=== PATIENT | female | born 1970 | race American Indian/Alaskan Native ===

== ENCOUNTER → 2016-12-12 | Outpatient (CLI) | payer BC ==
--- NOTE | 2016-12-12 12:43 | MY ---
EXAMINATION: Bilateral digital mammography utilizing CAD. HISTORY: Screening exam. Comparison is made to previous studies dated 12/13/2015, 11/03/2014. FINDINGS: Bilateral heterogeneously dense breast tissue. There is a single, possibly two view asymmetry within the slightly inner right breast, mid depth.. Otherwise, no suspicious calcifications, masses or architectural distortions. No pathologic appearing lymph nodes, no abnormal skin thickening or nipple inversion. Other CAD highlighted regions appear normal at this time. IMPRESSION: BI-RADS category 0 - Incomplete study. Right breast diagnostic is needed for further evaluation. THE FALSE-NEGATIVE RATE OF MAMMOGRAM IS APPROXIMATELY 10%. MANAGEMENT OF A PALPABLE ABNORMALITY MUST BE BASED UPON CLINICAL GROUNDS. SENSITIVITY FOR DETECTION OF ABNORMALITIES IN DENSE BREASTS IS LOW. NOTE: A letter will be sent to the patient regarding findings. [facility] -- REGGIE Chávez [phone] - FAX [phone]
== END ==
LOC: MW.MAM 09:13
PROVIDERS: ATTEND Obstetrics & Gynecology
DX: Z12.31 Encounter for screening mammogram for malignant neoplasm of breast (principal)
CPT/HCPCS: G0202; G0202-26

== ENCOUNTER → 2016-12-16 | Outpatient (CLI) | payer BC ==
--- NOTE | 2016-12-17 17:22 | US ---
EXAMINATION: Right digital mammography with targeted ultrasound. HISTORY: Abnormal screening. Comparison is made to previous studies dated 12/12/2016, 12/13/2015. FINDINGS: A right LM view was obtained and spot compression images obtained in the MLO and CC proje ctions. The asymmetry noted within the MLO projection likely persists with compression measuring about 1.1 c m and is oval in appearance. The MLO projection demonstrates an oval, persistent, round, well circum scribed 1.3 cm mass. In the MLO projection, this appears similar to the mammogram dated 12/13/2015. Ultrasound evaluation of the right breast within the region of concern demonstrates a collection of cysts versus a complex cyst at the approximate 3 o'clock position immediately adjacent to the areola . This demonstrates posterior acoustic enhancement and no internal color Doppler flow. IMPRESSION: BI-RADS category III - probably benign. Followup in 6 months with a right breast diagnos tic study is recommended. THE FALSE-NEGATIVE RATE OF MAMMOGRAM IS APPROXIMATELY 10%. MANAGEMENT OF A PALPABLE ABNORMALITY MUST BE BASED UPON CLINICAL GROUNDS. SENSITIVITY FOR DETECTION OF ABNORMALITIES IN DENSE BREASTS IS LOW. NOTE: A letter will be sent to the patient regarding findings. [facility] -- MelvinREGGIE [phone] - FAX [phone]
== END ==
LOC: MW.MAM 15:00
PROVIDERS: ATTEND Obstetrics & Gynecology
DX: R92.8 Other abnormal and inconclusive findings on diagnostic imaging of breast (principal)
CPT/HCPCS: 76642; G0206

== ENCOUNTER 2017-05-06 06:30 | Day surgery (SDC) | payer BC ==
[~2017-05-06 06:30] MED LIST: Clindamycin Phosphate in D5W 600 MG in Premix Bag 50 BAG IV SCH; Lactated Ringers 1,000 ML IV SCH
[2017-05-06] MEDS ORDERED: Midazolam 1 MG/ML 2 ML SDV ONE (07:10)
[2017-05-06] MEDS ORDERED: Propofol 200 MG/20 ML SDV ONE (07:10)
[2017-05-06] MEDS ORDERED: Lidocaine 2% 5 ML SDV ONE (07:10)
[2017-05-06] MEDS ORDERED: fentaNYL 250 MCG/5 ML SDV ONE (07:10)
[2017-05-06] MEDS ORDERED: Ondansetron 4 MG/2 ML SDV ONE (07:10)
[2017-05-06] MEDS ORDERED: Lidocaine 1% 20 ML MDV ONE (07:32)
--- NOTE | 2017-05-06 07:37 | PCM.PREANE ---
Preanesthetic Assessment - Anesthesia/Transfusion/Family Hx Anesthesia History: Prior Anesthesia Reaction Other Type of Anesthesia Reaction Comment: pt states she has problems with nausea post anesthesia Transfusion History: No Prior Transfusion(s) - Review of Systems General: No Symptoms Pulmonary: No Symptoms Cardiovascular: Other (Murmur) Gastrointestinal: No Symptoms Neurological: No Symptoms Other: Reports: None - Physical Assessment NPO Status Date: 05/05/17 NPO Status Time: 23:30 O2 Sat by Pulse Oximetry: 98 Respiratory Rate: 16 Vital Signs: Last Vital Signs Temp 99.7 F 05/06/17 06:49 Pulse 56 L 05/06/17 06:49 Resp 16 05/06/17 06:49 BP 108/55 L 05/06/17 06:49 Pulse Ox 98 05/06/17 06:49 Height: 5 ft 4 in Weight: 63.503 kg ASA Class: 3 Mental Status: Alert & Oriented x3 Airway Class: Mallampati = 2 Dentition: Reports: Normal Dentition Thyro-Mental Finger Breadths: 3 Mouth Opening Finger Breadths: 3 ROM/Head Extension: Full Lungs: Clear to Auscultation, Normal Respiratory Effort Cardiovascular: Regular Rate, Regular Rhythm, Murmurs - Allergies Allergies/Adverse Reactions: Allergies Allergy/AdvReac Type Severity Reaction Status Date / Time cefaclor [From Ceclor] Allergy Nausea and Verified 04/30/17 15:06 Vomiting Sulfa (Sulfonamide Allergy Hives Verified 04/30/17 15:06 Antibiotics) latex sensitive Allergy Rash Uncoded 04/30/17 15:06 - Acknowledgements Anesthesia Type Planned: General Anesthesia Pt an Appropriate Candidate for the Planned Anesthesia: Yes Alternatives and Risks of Anesthesia Discussed w Pt/Guardian: Yes Pt/Guardian Understands and Agrees with Anesthesia Plan: Yes PreAnesthesia Questionnaire HEENT History: Reports: Allergic Rhinitis, Other (See Below) Other HEENT History: wears glasses/contacts Cardiovascular History: Reports: Heart Murmur Other Cardiovascular History: states has hx of heart murmur Respiratory History: Reports: None Gastrointestinal History: Reports: Other (See Below) Other Gastrointestinal History: hx of Idiopathic Sclerosing Meseneritis, takes occasional prednisone Genitourinary History: Reports: None ACID BLOWER History: Reports: Musculoskeletal History: Reports: Fracture Neurological History: Reports: Other (See Below) Other Neuro History: hx of motion sickness, 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 Psychiatric History: Reports: None Endocrine/Metabolic History: Reports: Hypothyroidism Other Endocrine/Metabolic History: hypothyroidism Hematologic History: Reports: None Immunologic History: Reports: None Oncologic (Cancer) History: Reports: None Dermatologic History: Reports: None - Infectious Disease History Infectious Disease History: Reports: Chicken Pox - Past Surgical History Head Surgeries/Procedures: Reports: None HEENT Surgical History: Reports: Other (See Below) Other HEENT Surgeries/Procedures: cysts removed from eyelids Cardiovascular Surgical History: Reports: None Respiratory Surgical History: Reports: None GI Surgical History: Reports: Cholecystectomy Female Surgical History: Reports: Hysterectomy, Oophorectomy, Tubal Ligation Other Female Surgeries/Procedures: laparoscopy with left ovary removal Endocrine Surgical History: Reports: None Neurological Surgical History: Reports: C-Spine Other Neurological Surgeries/Procedures: cervical spinal fusion Musculoskeletal Surgical History: Reports: Arthroscopic Knee Other Musculoskeletal Surgeries/Procedures:: left knee arthroscopy Oncologic Surgical History: Reports: None Dermatological Surgical History: Reports: None - SUBSTANCE USE Smoking Status *Q: Former Smoker Tobacco Use Within Last Twelve Months: No Second Hand Smoke Exposure: No Recreational Drug Use History: No - HOME MEDS Home Medications: Home Meds Cholecalciferol (Vitamin D3) [Vitamin D3] 1,000 unit PO DAILY 07/02/15 [History] Levothyroxine [Synthroid] 100 mcg PO DAILY 07/02/15 [History] L.acidoph,Paracasei, B.lactis [Probiotic] 1 each PO DAILY 12/16/15 [History] Cyanocobalamin (Vitamin B12) [Vitamin B12] 1,000 mcg PO DAILY 01/08/16 [History] Cyclobenzaprine HCl 1 tab PO BEDTIME PRN 01/30/16 [History] Prednisone [IJD: predniSONE] 20 mg PO ASDIRECTED PRN 04/30/17 [History] - CURRENT (IN HOUSE) MEDS Current Meds: Current Medications Clindamycin Phosphate 600 mg/ (Premix) 50 mls @ 100 mls/hr IV ONCALL EDD Lactated Ringer's (Ringers, Lactated) 1,000 mls @ 100 mls/hr IV ASDIRECTED EDD Tramadol HCl (Ultram) 50 mg PO Q6H PRN PRN Reason: Pain Discontinued Medications Fentanyl (Sublimaze) Confirm Administered Dose 250 mcg .ROUTE .STK-MED ONE Stop: 05/06/17 07:11 Lidocaine (Xylocaine-Mpf 2%) Confirm Administered Dose 5 ml .ROUTE .STK-MED ONE Stop: 05/06/17 07:11 Midazolam HCl (Versed 1 Mg/Ml) Confirm Administered Dose 2 mg .ROUTE .STK-MED ONE Stop: 05/06/17 07:11 Ondansetron HCl (Zofran) Confirm Administered Dose 4 mg .ROUTE .STK-MED ONE Stop: 05/06/17 07:11 Propofol (Diprivan 20 Ml) Confirm Administered Dose 200 mg .ROUTE .STK-MED ONE Stop: 05/06/17 07:11
[2017-05-06] MEDS ORDERED: traMADol 50 MG Tab PO PRN (08:00)
[2017-05-06] MEDS ORDERED: diphenhydrAMINE 50 MG/ML SDV ONE (08:22)
[2017-05-06] MEDS ORDERED: Dexamethasone 4 MG/ML 5 ML MDV ONE (08:22)
[2017-05-06] MEDS ORDERED: Metoclopramide 10 MG/2 ML SDV ONE (08:28)
[2017-05-06] MEDS ORDERED: fentaNYL 100 MCG/2 ML SDV IVPUSH PRN (08:35)
--- NOTE | 2017-05-06 09:00 | PCM.OPNOTE ---
- General Post-Op/Procedure Note Date of Surgery/Procedure: 05/06/17 Operative Procedure(s): L knee arthroscopy with PMM Post-Op Diagnosis: L knee medial meniscus tear Primary Surgeon: Sonia Mcghee Principal Programmer: Karlene Longoria in mLs: 5 Condition: Good Free Text/Narrative:: #[id number] tt=15 min
--- NOTE | 2017-05-06 09:11 | PCM.POSTAN ---
POST ANESTHESIA ASSESSMENT - MENTAL STATUS Mental Status: Alert, Oriented - RESPIRATORY Respiratory Status: Respiratory Rate WNL, Airway Patent, O2 Saturation Stable - CARDIOVASCULAR CV Status: Pulse Rate WNL, Blood Pressure Stable - GASTROINTESTINAL GI Status: No Symptoms - POST OP HYDRATION Hydration Status: Adequate & Stable
--- NOTE | 2017-05-06 09:56 | OR ---
SURGEON: Sonia Mcghee MD DATE OF PROCEDURE: 05/06/2017 PREOPERATIVE DIAGNOSIS: Left knee pain. POSTOPERATIVE DIAGNOSES: 1. Left knee medial meniscus tear. 2. Degenerative joint disease, left knee. PROCEDURE: Left knee arthroscopy with partial medial meniscectomy. EQUIPMENT OPERATOR: Karlene Longoria PA-C. ANESTHESIA: General. ESTIMATED BLOOD LOSS: 5 mL. TOURNIQUET TIME: 15 minutes. COMPLICATIONS: None. DVT PROPHYLAXIS: Not indicated. IMPLANTS USED: None. BRIEF HISTORY: Jossy is a 46-year-old female, who has had complaint of progressive left knee pain. She did have an MRI, which showed some degenerative findings. Due to her lack of response to conservative treatment, I did recommend surgical intervention. The risks and goals of procedure were discussed with the patient and were documented preoperatively. She agreed to proceed. DESCRIPTION OF PROCEDURE: The patient was properly identified and brought to the operating room. She was transferred from the OR cart and placed on the operating room table in supine position. General anesthesia was administered. After adequate anesthesia was obtained, a well-padded tourniquet was applied to the left lower extremity. The left lower extremity was then prepped in standard fashion using ChloraPrep solution. It was then sterilely draped. A time-out was performed to ensure correct site and procedure. Preoperative antibiotics were given. Surgical site had been marked preoperatively. An Esmarch was used to exsanguinate the left lower extremity and the tourniquet was inflated to 250 mmHg. A lateral portal arthrotomy was established. Blunt trocar and cannula were introduced into the suprapatellar pouch. Camera, inflow, and outflow were assembled. No significant synovitis was noted. The patellofemoral joint was visualized. The patella showed evidence of degenerative changes along with the trochlea. The patella appeared to track centrally. I then extended down the lateral medial gutter. No loose bodies were identified. I then entered the medial compartment. A medial portal arthrotomy was established. A blunt probe was inserted. The meniscus was probed. She was found to have a radial tear of the posterior horn of the meniscus. Using a combination of biters and shaver, this was resected back to a stable remnant. It was again probed and found to be stable. Cartilage surfaces were then inspected. 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 A chondroplasty was performed. Grade 2 to grade 3 chondromalacia was also present diffusely along the medial tibial plateau. I then entered the notch. Both the ACL and PCL were visualized and probed and found to be intact. I finally entered the lateral compartment. The meniscus was probed and found to be stable. The joint surfaces showed grade 1 chondromalacia only. I then re-entered the patellofemoral joint. Grade 3 chondromalacia was noted centrally along the medial facet of the patella. A shaver was used to perform a chondroplasty. The trochlear groove also showed diffuse grade 2 to grade 3 degenerative findings. The instruments were then removed from the knee. The portal sites were closed with 3-0 nylon. Lidocaine 1% was injected along the portal tracts. Xeroform gauze was placed over the wound and a bulky dressing was applied. The tourniquet was then deflated. She was awakened from her anesthetic and transferred back to the operating room cart. She was brought to recovery room in stable condition. All needle and sponge counts were correct. AGATHA / MARIBEL /[id number]
--- NOTE | 2017-05-06 10:42 | PCM48HPAN ---
Post Anesthesia Note - EVALUATION WITHIN 48HRS OF ANESTHETIC Vital Signs in Normal Range: Yes Patient Participated in Evaluation: Yes Respiratory Function Stable: Yes Airway Patent: Yes Cardiovascular Function Stable: Yes Hydration Status Stable: Yes Pain Control Satisfactory: Yes Nausea and Vomiting Control Satisfactory: Yes (Prophylaxis used did curtail the historical nausea problem) Mental Status Recovered: Yes - COMMENTS/OBSERVATIONS Free Text/Narrative:: To home accompanied.
[2017-05-06 15:23] VITALS: BP 130/71
== END 2017-05-06 10:43 | disposition home or self-care (01) ==
LOC: MW.SDS 06:30
PROVIDERS: ATTEND Orthopaedic Surgery
DX: S83.242A Other tear of medial meniscus, current injury, left knee, initial encounter (principal); M65.862 Other synovitis and tenosynovitis, left lower leg; M17.12 Unilateral primary osteoarthritis, left knee; M22.42 Chondromalacia patellae, left knee; I10 Essential (primary) hypertension; E03.9 Hypothyroidism, unspecified; Z87.891 Personal history of nicotine dependence; Z79.899 Other long term (current) drug therapy; Z88.1 Allergy status to other antibiotic agents; Z88.2 Allergy status to sulfonamides; Z91.040 Latex allergy status; Z98.1 Arthrodesis status; Z98.51 Tubal ligation status; Z90.49 Acquired absence of other specified parts of digestive tract; Z90.710 Acquired absence of both cervix and uterus; Z90.721 Acquired absence of ovaries, unilateral; Z98.890 Other specified postprocedural states
CPT/HCPCS: 29881; 93005; J1100; J1200; J2250; J2405; J2765; J3010; J7120; 01400; 88304; J2704

== ENCOUNTER 2017-08-12 06:00 | Emergency (ER) | payer BC ==
[2017-08-12] MEDS ORDERED: Ondansetron 4 MG Tab.DIS PO ONE (06:25)
--- NOTE | 2017-08-12 06:27 | EDM.PDOC ---
ED HPI GENERAL MEDICAL PROBLEM - General Chief Complaint: General Stated Complaint: ALLERGIC REACTION TO MEDICATION Time Seen by Provider: 08/12/17 06:07 - History of Present Illness INITIAL COMMENTS - FREE TEXT/NARRATIVE: HISTORY AND PHYSICAL: History of present illness: The patient is a 46-year-old female who presents with complaints of nausea lightheadedness shakiness and feeling sweaty that woke her from sleep at 2:30 this morning. She says that she was prescribed Celexa by Dr. velasquez recently and took her first dose last evening at 9 PM and she feels that this is a reaction to that medication. She has recently been following with Dr. Velasquez doing a workup for chronic abdominal pain consisting of labs and a CT scan all of which were negative. She states currently that she is not having abdominal pain but she is nauseated she is not vomiting or having diarrhea. She has no chest pain but earlier she felt like she was having palpitations which have improved. She feels lightheaded and woozy but not specifically dizzy and she has not passed out or blackout. She feels flushed and warm. All of these symptoms started at 2: 30 this morning and she said that she truly believes that it's related to the medication which she doesn't want to take anymore. Review of systems: As per history of present illness and below otherwise all systems reviewed and negative. Past medical history: As per history of present illness and as reviewed below otherwise noncontributory. Surgical history: As per history of present illness and as reviewed below otherwise noncontributory. Social history: No reported history of drug or alcohol abuse. Family history: As per history of present illness and as reviewed below otherwise noncontributory. Physical exam: Gen.: Well-developed well-nourished female who seems somewhat anxious in the room and vital signs are stable. HEENT: Atraumatic, normocephalic, pupils reactive, the patient has no nystagmus , negative for conjunctival pallor or scleral icterus, mucous membranes moist, throat clear, neck supple, nontender, trachea midline. Lungs: Clear to auscultation, breath sounds equal bilaterally, chest nontender. Heart: S1S2, regular rate and rhythm no overt murmurs Abdomen: Soft, nondistended, nontender. NABS Pelvis: Deferred Genitourinary: Deferred Rectal: Deferred. Extremities: Atraumatic, negative for cords or calf pain. Neurovascular unremarkable. Neuro: Awake, alert, oriented. Cranial nerves II through XII unremarkable. Cerebellum unremarkable. Motor and sensory unremarkable throughout. Exam nonfocal. Skin: Normal turgor no evidence of any diaphoresis or rashes are seen Diagnostics: EKG orthostatic vitals, CBC CMP troponin Therapeutics: Zofran Ativan by mouth 0628: Case was discussed with Dr. Velasquez as she is the provider who prescribed Celexa and she says that the patient does have issues with anxiety and she has done a workup for this chronic abdominal pain as is present in the computer consisting of labs and a CT scan performed on August 07. She is in agreement with doing basic labs but feels that the Ativan and Zofran will make a big difference. I discussed with the patient this conversation and she is agreeable. Impression: Nausea and lightheadedness, likely Anxiety reaction with history of recent Celexa use Definitive disposition and diagnosis as appropriate pending reevaluation and review of above. no pain Pain Score (Numeric/FACES): 0 - Related Data Allergies Allergy/AdvReac Type Severity Reaction Status Date / Time cefaclor [From Ceclor] Allergy Nausea and Verified 08/12/17 06:12 Vomiting Sulfa (Sulfonamide Allergy Hives Verified 08/12/17 06:12 Antibiotics) sulfamethoxazole Allergy Stomach Verified 08/12/17 06:12 [From Bactrim] Upset trimethoprim [From Bactrim] Allergy Stomach Verified 08/12/17 06:12 Upset latex sensitive Allergy Rash Uncoded 08/12/17 06:12 Home Meds: Home Meds Cholecalciferol (Vitamin D3) [Vitamin D3] 1,000 unit PO DAILY 07/02/15 [History] Levothyroxine [Synthroid] 100 mcg PO DAILY 07/02/15 [History] L.acidoph,Paracasei, B.lactis [Probiotic] 1 each PO DAILY 12/16/15 [History] Escitalopram [Lexapro] 10 mg PO DAILY 08/12/17 [History] Past Medical History HEENT History: Reports: Other (See Below) Other HEENT History: cyst removed from eye lid Cardiovascular History: Reports: Heart Murmur Other Cardiovascular History: states has hx of heart murmur Respiratory History: Reports: None Gastrointestinal History: Reports: Cholelithiasis, GERD Other Gastrointestinal History: hx of Idiopathic Sclerosing Meseneritis, takes occasional prednisone Genitourinary History: Reports: None BACTERIOLOGIST PHARMACEUTICAL History: Reports: Musculoskeletal History: Reports: None Neurological History: Reports: None Other Neuro History: hx of motion sickness, 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 Psychiatric History: Reports: None Endocrine/Metabolic History: Reports: Hypothyroidism Other Endocrine/Metabolic History: hypothyroidism Hematologic History: Reports: None Immunologic History: Reports: None Oncologic (Cancer) History: Reports: None Dermatologic History: Reports: None - Infectious Disease History Infectious Disease History: Reports: Chicken Pox - Past Surgical History Head Surgeries/Procedures: Reports: None HEENT Surgical History: Reports: None Cardiovascular Surgical History: Reports: None Respiratory Surgical History: Reports: None Female Surgical History: Reports: Hysterectomy, Tubal Ligation, Other (See Below) Endocrine Surgical History: Reports: None Neurological Surgical History: Reports: C-Spine, Other (See Below) Other Neurological Surgeries/Procedures: hx neck surgery with plate Musculoskeletal Surgical History: Reports: Other (See Below) Other Musculoskeletal Surgeries/Procedures:: cervical 4-5 fusion Oncologic Surgical History: Reports: None Dermatological Surgical History: Reports: None Social & Family History - Family History Family Medical History: Noncontributory Cardiac: Reports: Hypertension, [place] Endocrine/Metabolic: Reports: Diabetes, type II - Tobacco Use Smoking Status *Q: Never Smoker Second Hand Smoke Exposure: No - Caffeine Use Caffeine Use: Reports: None - Recreational Drug Use Recreational Drug Use: No Drug Use in Last 12 Months: No ED ROS GENERAL - Review of Systems Review Of Systems: ROS reveals no pertinent complaints other than HPI. ED EXAM, GENERAL - Physical Exam Exam: See Below (See dictation) Course - Vital Signs Last Recorded V/S: Last Vital Signs Temp 36.8 C 08/12/17 06:14 Pulse 66 08/12/17 06:14 Resp 18 08/12/17 06:14 BP 144/69 H 08/12/17 06:14 Pulse Ox 100 08/12/17 06:14 Orthostatic Blood Pressure [ 132/74 Standing] Orthostatic Blood Pressure [ 137/80 Sitting] Orthostatic Blood Pressure [ 121/69 Supine] - Orders/Labs/Meds Orders: Active Orders 24 hr Category Date Time Status Blood Glucose Check, Bedside [RC] ONETIME Care 08/12/17 06:25 Active EKG Documentation Completion [RC] STAT Care 08/12/17 06:25 Active Orthostatic Vital Signs [RC] ASDIRECTED Care 08/12/17 06:26 Active COMPREHENSIVE METABOLIC PN,CMP [CHEM] Stat Lab 08/12/17 06:36 Received TROPONIN I [CHEM] Stat Lab 08/12/17 06:36 Received Labs: Laboratory Tests 08/12/17 Range/Units 06:36 WBC 8.27 (4.0-11.0) K/uL RBC 4.70 (4.30-5.90) M/uL Hgb 14.9 (12.0-16.0) g/dL Hct 43.6 (36.0-46.0) % MCV 92.8 (80.0-98.0) fL MCH 31.7 (27.0-32.0) pg MCHC 34.2 (31.0-37.0) g/dL RDW Std Deviation 43.7 (28.0-62.0) fl RDW Coeff of Geovani 13 (11.0-15.0) % Plt Count 288 (150-400) K/uL MPV 9.70 (7.40-12.00) fL Neut % (Auto) 78.5 (48.0-80.0) % Lymph % (Auto) 16.1 (16.0-40.0) % [place] % (Auto) 4.7 (0.0-15.0) % Eos % (Auto) 0.5 (0.0-7.0) % Baso % (Auto) 0.2 (0.0-1.5) % Neut # (Auto) 6.5 H (1.4-5.7) K/uL Lymph # (Auto) 1.3 (0.6-2.4) K/uL [place] # (Auto) 0.4 (0.0-0.8) K/uL Eos # (Auto) 0.0 (0.0-0.7) K/uL Baso # (Auto) 0.0 (0.0-0.1) K/uL Nucleated RBC % 0.0 /100WBC Nucleated RBCs # 0 K/uL Meds: Medications Discontinued Medications Generic Name Dose Route Start Last Admin Trade Name Freq PRN Reason Stop Dose Admin Lorazepam 1 mg 08/12/17 06:32 08/12/17 06:53 Ativan PO 08/12/17 06:33 1 mg ONETIME ONE Administration Ondansetron HCl 4 mg 08/12/17 06:25 08/12/17 06:54 Zofran Odt PO 08/12/17 06:26 4 mg ONETIME ONE Administration Departure - Departure Time of Disposition: 07:15 Disposition: Home, Self-Care 01 Condition: Good Clinical Impression: Anxiety reaction Drug reaction Qualifiers: Encounter type: initial encounter Qualified Code(s): T88.7XXA - Unspecified adverse effect of drug or medicament, initial encounter - Discharge Information Referrals: Alyssa Velasquez MD [Primary Care Provider] - Forms: ED Department Discharge Additional Instructions: The following information is given to patients seen in the emergency department who are being discharged to home. This information is to outline your options for follow-up care. We provide all patients seen in our emergency department with a follow-up referral. The need for follow-up, as well as the timing and circumstances, are variable depending upon the specifics of your emergency department visit. If you don't have a primary care physician on staff, we will provide you with a referral. We always advise you to contact your personal physician following an emergency department visit to inform them of the circumstance of the visit and for follow-up with them and/or the need for any referrals to a consulting specialist. The emergency department will also refer you to a specialist when appropriate. This referral assures that you have the opportunity for followup care with a specialist. All of these measure are taken in an effort to provide you with optimal care, which includes your followup. Under all circumstances we always encourage you to contact your private physician who remains a resource for coordinating your care. When calling for followup care, please make the office aware that this follow-up is from your recent emergency room visit. If for any reason you are refused follow-up, please contact the [facility] emergency department at and ask to speak to the emergency department charge nurse. [facility] Primary care- Internal Medicine and Family [facility] [address] [place] [id number] [facility] [address] [place] [id number] Please contact her provider in the clinic or for follow-up of your symptoms and further care and evaluation the next 1-2 days. Return to ER as needed and as discussed. - My Orders Last 24 Hours: My Active Orders 08/12/17 06:25 Blood Glucose Check, Bedside [RC] ONETIME EKG Documentation Completion [RC] STAT 08/12/17 06:26 Orthostatic Vital Signs [RC] ASDIRECTED 08/12/17 06:36 COMPREHENSIVE METABOLIC PN,CMP [CHEM] Stat TROPONIN I [CHEM] Stat - Assessment/Plan Last 24 Hours: My Active Orders 08/12/17 06:25 Blood Glucose Check, Bedside [RC] ONETIME EKG Documentation Completion [RC] STAT 08/12/17 06:26 Orthostatic Vital Signs [RC] ASDIRECTED 08/12/17 06:36 COMPREHENSIVE METABOLIC PN,CMP [CHEM] Stat TROPONIN I [CHEM] Stat
[2017-08-12] MEDS ORDERED: LORazepam 1 MG Tab PO ONE (06:32)
[2017-08-12 07:07] LABS: CHLORIDE,CL 103 mmol/L (98-110); SODIUM,NA 137 mmol/L (136-146)
[2017-08-12 07:51] VITALS: BP 127/70
== END 2017-08-12 07:48 | disposition home or self-care (01) ==
LOC: MW.ED 06:00
DX: R11.0 Nausea (principal); T43.225A Adverse effect of selective serotonin reuptake inhibitors, initial encounter; F41.9 Anxiety disorder, unspecified; Z88.1 Allergy status to other antibiotic agents; Z88.2 Allergy status to sulfonamides; Z91.040 Latex allergy status; Z79.899 Other long term (current) drug therapy
CPT/HCPCS: 36415; 80053; 82962; 84484; 85025; 99284; A9270

== ENCOUNTER 2019-09-11 19:14 | Emergency (ER) | payer BC ==
[2019-09-11] MEDS ORDERED: Sodium Chloride 0.9% 10 ML Syringe FLUSH PRN (19:49)
[2019-09-11] MEDS ORDERED: Sodium Chloride 0.9% 2.5 ML Syringe FLUSH PRN (19:49)
[2019-09-11] MEDS ORDERED: Sodium Chloride 0.9% 1,000 ML IV ONE (19:49)
[2019-09-11] MEDS ORDERED: Ketorolac 30 MG/ML SDV IVPUSH ONE (19:54)
[2019-09-11] MEDS ORDERED: Ondansetron 4 MG/2 ML SDV IVPUSH ONE (19:54)
--- NOTE | 2019-09-11 19:56 | EDM.PDOC ---
ED HPI GENERAL MEDICAL PROBLEM - General Chief Complaint: Abdominal Pain Stated Complaint: SEVERE STOMACH PAINS Time Seen by Provider: 09/11/19 19:54 Source of Information: Reports: Patient History Limitations: Reports: No Limitations - History of Present Illness INITIAL COMMENTS - FREE TEXT/NARRATIVE: HISTORY AND PHYSICAL: History of present illness: Patient is a 49-year-old female presents to the ED with complaint of abdominal pain. She states that she was having abdominal pain yesterday but today after eating dinner she developed severe abdominal pain. She states that the pain is more on the right but is all over her stomach. She denies any nausea, vomiting , diarrhea, fevers, chills. She states she had a normal nonbloody bowel movement this morning. Past surgical history includes cholecystectomy and hysterectomy with left oophorectomy. Review of systems: As per history of present illness and below otherwise all systems reviewed and negative. Past medical history: As per history of present illness and as reviewed below otherwise noncontributory. Surgical history: As per history of present illness and as reviewed below otherwise noncontributory. Social history: No reported history of drug or alcohol abuse. Family history: As per history of present illness and as reviewed below otherwise noncontributory. Physical exam: General: Patient sitting comfortably in no acute distress and nontoxic appearing HEENT: Atraumatic, normocephalic, pupils reactive, negative for conjunctival pallor or scleral icterus, mucous membranes moist, throat clear, neck supple, nontender, trachea midline. No meningeal signs. Lungs: Clear to auscultation, breath sounds equal bilaterally, chest nontender. Heart: RLQ tenderness to palpation. S1S2, regular, negative for clicks, rubs, or overt murmur. Abdomen: No point tenderness to palpation. Soft, nondistended. Negative for masses or hepatosplenomegaly. Negative for costovertebral tenderness. No rigidity, rebound, guarding. Pelvis: Stable nontender. Genitourinary: Deferred. Rectal: Deferred. Extremities: Atraumatic, negative for cords or calf pain. Neurovascular unremarkable. Neuro: Awake, alert, oriented. Cranial nerves II through XII unremarkable. Cerebellum unremarkable. Motor and sensory unremarkable throughout. Exam nonfocal. Notes: Discussed CT finding of "lilliam mesentery." Patient states she has history of mesenteritis and has been on prednisone. She states the prednisone does not help and does not want to take this. No signs of infections process at this time. Patient is requesting discharge home and will follow up with primary care provider. Precautions for ED Follow up given. Diagnostics: CBC, CMP, lipase Therapeutics: 1L NS IV 30mg Toradol IV 4mg Zofran IV Prescriptions: Tramadol Zofran Impression: Abdominal pain Plan: Take medications as instructed, do not take while driving as they may make you drowsy Follow up with primary care provider Return to ED as needed as discussed Definitive disposition and diagnosis as appropriate pending reevaluation and review of above. abd Pain Score (Numeric/FACES): 9 - Related Data Allergies Allergy/AdvReac Type Severity Reaction Status Date / Time cefaclor [From Ceclor] Allergy Nausea and Verified 08/12/17 06:12 Vomiting Sulfa (Sulfonamide Allergy Hives Verified 08/12/17 06:12 Antibiotics) sulfamethoxazole Allergy Stomach Verified 08/12/17 06:12 [From Bactrim] Upset trimethoprim [From Bactrim] Allergy Stomach Verified 08/12/17 06:12 Upset latex sensitive Allergy Rash Uncoded 08/12/17 06:12 Home Meds: Home Meds Cholecalciferol (Vitamin D3) [Vitamin D3] 1,000 unit PO DAILY 07/02/15 [History] Levothyroxine [Synthroid] 100 mcg PO DAILY 07/02/15 [History] L.acidoph,Paracasei, B.lactis [Probiotic] 1 each PO DAILY 12/16/15 [History] Escitalopram [Lexapro] 10 mg PO DAILY 08/12/17 [History] Past Medical History HEENT History: Reports: Other (See Below) Other HEENT History: cyst removed from eye lid Cardiovascular History: Reports: Heart Murmur Other Cardiovascular History: states has hx of heart murmur Respiratory History: Reports: None Gastrointestinal History: Reports: Cholelithiasis, GERD Other Gastrointestinal History: hx of Idiopathic Sclerosing Meseneritis, takes occasional prednisone Genitourinary History: Reports: None LOG SNAKER History: Reports: Musculoskeletal History: Reports: None Neurological History: Reports: None Other Neuro History: hx of motion sickness, 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 Psychiatric History: Reports: None Endocrine/Metabolic History: Reports: Hypothyroidism Other Endocrine/Metabolic History: hypothyroidism Hematologic History: Reports: None Immunologic History: Reports: None Oncologic (Cancer) History: Reports: None Dermatologic History: Reports: None - Infectious Disease History Infectious Disease History: Reports: Chicken Pox - Past Surgical History Head Surgeries/Procedures: Reports: None HEENT Surgical History: Reports: None Cardiovascular Surgical History: Reports: None Respiratory Surgical History: Reports: None GI Surgical History: Reports: Cholecystectomy Female Surgical History: Reports: Hysterectomy, Tubal Ligation, Other (See Below) Endocrine Surgical History: Reports: None Neurological Surgical History: Reports: C-Spine, Other (See Below) Other Neurological Surgeries/Procedures: hx neck surgery with plate Musculoskeletal Surgical History: Reports: Other (See Below) Other Musculoskeletal Surgeries/Procedures:: cervical 4-5 fusion Oncologic Surgical History: Reports: None Dermatological Surgical History: Reports: None Social & Family History - Family History Family Medical History: Noncontributory Cardiac: Reports: Hypertension, [place] Endocrine/Metabolic: Reports: Diabetes, type II - Tobacco Use Smoking Status *Q: Never Smoker - Caffeine Use Caffeine Use: Reports: None - Recreational Drug Use Recreational Drug Use: No ED ROS GENERAL - Review of Systems Review Of Systems: Comprehensive ROS is negative, except as noted in HPI. ED EXAM, GI/ABD - Physical Exam Exam: See Below (See dictation) Course - Vital Signs Last Recorded V/S: Last Vital Signs Temp 98.9 F 09/11/19 19:24 Pulse 66 09/11/19 21:51 Resp 14 09/11/19 21:51 BP 140/71 09/11/19 21:51 Pulse Ox 97 09/11/19 21:51 - Orders/Labs/Meds Orders: Active Orders 24 hr Category Date Time Status Sodium Chloride 0.9% [Saline Flush] Med 09/11/19 19:49 Active 10 ml FLUSH ASDIRECTED PRN Sodium Chloride 0.9% [Saline Flush] Med 09/11/19 19:49 Active 2.5 ml FLUSH ASDIRECTED PRN Saline Lock Insert [OM.PC] Stat Oth 09/11/19 19:49 Ordered Medication Orders Sodium Chloride (Saline Flush) 10 ml FLUSH ASDIRECTED PRN PRN Reason: Keep Vein Open Last Admin: 09/11/19 19:57 Dose: 10 ml Sodium Chloride (Saline Flush) 2.5 ml FLUSH ASDIRECTED PRN PRN Reason: Keep Vein Open Last Admin: 09/11/19 19:57 Dose: 2.5 ml Labs: Laboratory Tests 09/11/19 09/11/19 09/11/19 Range/Units 20:02 20:26 20:26 WBC 9.03 (4.0-11.0) K/uL RBC 4.49 (4.30-5.90) M/uL Hgb 13.6 (12.0-16.0) g/dL Hct 41.2 (36.0-46.0) % MCV 91.8 (80.0-98.0) fL MCH 30.3 (27.0-32.0) pg MCHC 33.0 (31.0-37.0) g/dL RDW Std Deviation 43.7 (28.0-62.0) fl RDW Coeff of Geovani 13 (11.0-15.0) % Plt Count 289 (150-400) K/uL MPV 9.80 (7.40-12.00) fL Neut % (Auto) 67.9 (48.0-80.0) % Lymph % (Auto) 24.9 (16.0-40.0) % Jennings % (Auto) 6.1 (0.0-15.0) % Eos % (Auto) 0.8 (0.0-7.0) % Baso % (Auto) 0.3 (0.0-1.5) % Neut # (Auto) 6.1 H (1.4-5.7) K/uL Lymph # (Auto) 2.3 (0.6-2.4) K/uL Jennings # (Auto) 0.6 (0.0-0.8) K/uL Eos # (Auto) 0.1 (0.0-0.7) K/uL Baso # (Auto) 0.0 (0.0-0.1) K/uL Nucleated RBC % 0.0 /100WBC Nucleated RBCs # 0 K/uL Sodium 142 (136-145) mmol/L Potassium 4.2 (3.5-5.1) mmol/L Chloride 107 (98-107) mmol/L Carbon Dioxide 28.0 (21.0-32.0) mmol/L BUN 23 H (7.0-18.0) mg/dL Creatinine 1.4 H (0.6-1.0) mg/dL Est Cr Clr Drug Dosing 41.51 mL/min Estimated GFR (MDRD) 39.8 ml/min Glucose 124 H (74-106) mg/dL Calcium 8.6 (8.5-10.1) mg/dL Total Bilirubin 0.2 (0.2-1.0) mg/dL AST 15 (15-37) IU/L ALT 34 (14-63) IU/L Alkaline Phosphatase 140 H (46-116) U/L Total Protein 7.3 (6.4-8.2) g/dL Albumin 3.7 (3.4-5.0) g/dL Globulin 3.6 (2.6-4.0) g/dL Albumin/Globulin Ratio 1.0 (0.9-1.6) Lipase 139 (73-393) U/L Urine Color YELLOW Urine Appearance CLEAR Urine pH 6.5 (5.0-8.0) Ur Specific [place] 1.020 (1.001-1.035) Urine Protein NEGATIVE (NEGATIVE) mg/dL Urine Glucose (UA) NEGATIVE (NEGATIVE) mg/dL Urine Ketones NEGATIVE (NEGATIVE) mg/dL Urine Occult Blood NEGATIVE (NEGATIVE) Urine Nitrite NEGATIVE (NEGATIVE) Urine Bilirubin NEGATIVE (NEGATIVE) Urine Urobilinogen 0.2 (<2.0) EU/dL Ur Leukocyte Esterase NEGATIVE (NEGATIVE) Meds: Medications Generic Name Dose Route Start Last Admin Trade Name Freq PRN Reason Stop Dose Admin Sodium Chloride 10 ml 09/11/19 19:49 09/11/19 19:57 Saline Flush FLUSH 10 ml ASDIRECTED PRN Administration Keep Vein Open Sodium Chloride 2.5 ml 09/11/19 19:49 09/11/19 19:57 Saline Flush FLUSH 2.5 ml ASDIRECTED PRN Administration Keep Vein Open Discontinued Medications Generic Name Dose Route Start Last Admin Trade Name Freq PRN Reason Stop Dose Admin Sodium Chloride 1,000 mls @ 999 mls/hr 09/11/19 19:49 09/11/19 19:57 Normal Saline IV 09/11/19 20:49 999 mls/hr STAT ONE Administration Ketorolac Tromethamine 30 mg 09/11/19 19:54 09/11/19 20:00 Toradol IVPUSH 09/11/19 19:55 30 mg ONETIME ONE Administration Ondansetron HCl 4 mg 09/11/19 19:54 09/11/19 20:00 Zofran IVPUSH 09/11/19 19:55 4 mg ONETIME ONE Administration Departure - Departure Time of Disposition: 22:27 Disposition: Home, Self-Care 01 Condition: Good Clinical Impression: Abdominal pain Qualifiers: Abdominal location: left lower quadrant Qualified Code(s): R10.32 - Left lower quadrant pain - Discharge Information Referrals: PCP,None [Primary Care Provider] - Forms: ED Department Discharge Additional Instructions: The following information is given to patients seen in the emergency department who are being discharged to home. This information is to outline your options for follow-up care. We provide all patients seen in our emergency department with a follow-up referral. The need for follow-up, as well as the timing and circumstances, are variable depending upon the specifics of your emergency department visit. If you don't have a primary care physician on staff, we will provide you with a referral. We always advise you to contact your personal physician following an emergency department visit to inform them of the circumstance of the visit and for follow-up with them and/or the need for any referrals to a consulting specialist. The emergency department will also refer you to a specialist when appropriate. This referral assures that you have the opportunity for follow-up care with a specialist. All of these measure are taken in an effort to provide you with optimal care, which includes your follow-up. Under all circumstances we always encourage you to contact your private physician who remains a resource for coordinating your care. When calling for follow-up care, please make the office aware that this follow-up is from your recent emergency room visit. If for any reason you are refused follow-up, please contact the [facility] Emergency Department at and asked to speak to the emergency department charge nurse. [facility] [address] [place] [id number] [facility] [address] [place] [id number] Take medications as instructed, do not take while driving as they may make you drowsy Follow up with primary care provider Return to ED as needed as discussed Sepsis Event Note - Evaluation Sepsis Screening Result: No Definite Risk - Focused Exam Vital Signs: Vital Signs Temp Pulse Resp BP Pulse Ox 09/11/19 21:51 66 14 140/71 97 09/11/19 19:24 98.9 F 68 20 154/84 H 98 Date Exam was Performed: 09/11/19 Time Exam was Performed: 22:27 - My Orders Last 24 Hours: My Active Orders 09/11/19 19:49 Sodium Chloride 0.9% [Saline Flush] 10 ml FLUSH ASDIRECTED PRN Sodium Chloride 0.9% [Saline Flush] 2.5 ml FLUSH ASDIRECTED PRN Saline Lock Insert [OM.PC] Stat - Assessment/Plan Last 24 Hours: My Active Orders 09/11/19 19:49 Sodium Chloride 0.9% [Saline Flush] 10 ml FLUSH ASDIRECTED PRN Sodium Chloride 0.9% [Saline Flush] 2.5 ml FLUSH ASDIRECTED PRN Saline Lock Insert [OM.PC] Stat
[2019-09-11 20:53] LABS: POTASSIUM,K 4.2 mmol/L (3.5-5.1)
--- NOTE | 2019-09-11 21:36 | CT ---
HISTORY: Right upper quadrant pain. COMPARISON: None. TECHNIQUE: Noncontrast axial images were obtained through the abdomen and pelvis. FINDINGS: The lung bases are clear. Cholecystectomy. The liver, spleen, pancreas, adrenal glands and kidneys are within normal. The appendix is normal. No evidence for small bowel obstruction. Increased number of lymph nodes within the mesentery with mild haziness within the mesenteric fat. The bones are within normal. IMPRESSION: Nonspecific lilliam mesentery with probable reactive lymph nodes. Likely represents an infectious or inflammatory process. Short-term followup CT could be performed. Please note that all CT scans at this facility use dose modulation, iterative reconstruction, and/or weight-based dosing when appropriate to reduce radiation dose to as low as reasonably achievable. Dictated by Namita Hi MD @ Sep 11 2019 9:30PM Signed by Dr. Namita Hi @ Sep 11 2019 9:35PM
[2019-09-11 22:33] VITALS: BP 132/63; PULSE 60
== END 2019-09-11 22:39 | disposition home or self-care (01) ==
LOC: MW.ED 19:14
DX: R10.32 Left lower quadrant pain (principal); Z90.49 Acquired absence of other specified parts of digestive tract; Z98.51 Tubal ligation status; Z90.710 Acquired absence of both cervix and uterus; Z88.2 Allergy status to sulfonamides; Z91.040 Latex allergy status; Z88.1 Allergy status to other antibiotic agents; E03.9 Hypothyroidism, unspecified; Z79.899 Other long term (current) drug therapy
CPT/HCPCS: 36415; 74176; 80053; 81003; 83690; 85025; 96361; 96374; 96375; 99284; J1885; J2405; J7030

== ENCOUNTER 2021-07-04 06:58 | Day surgery (SDC) | payer BC ==
[~2021-07-04 06:58] MED LIST changes: -Clindamycin Phosphate in D5W 600 MG in Premix Bag 50 BAG IV SCH; +Sodium Chloride 0.9% 10 ML SDV IV PRN; +Sodium Chloride 0.9% 10 ML Syringe FLUSH PRN; +Sodium Chloride 0.9% 2.5 ML Syringe FLUSH PRN
--- NOTE | 2021-07-04 07:30 | PCM.PREANE ---
Preanesthetic Assessment - Procedure Proposed Procedure: Colonoscopy - Anesthesia/Transfusion/Family Hx Anesthesia History: Prior Anesthesia Reaction Type of Anesthesia Reaction: Excessive Nausea/Vomiting Other Type of Anesthesia Reaction Comment: pt states she has problems with nausea post anesthesia Family History of Anesthesia Reaction: No Transfusion History: No Prior Transfusion(s) - Review of Systems General: No Symptoms Pulmonary: No Symptoms (Quit smoking x20 Years) Cardiovascular: No Symptoms Gastrointestinal: No Symptoms Neurological: No Symptoms Other: Reports: Thyroid Problems (Hypo) - Physical Assessment NPO Status Date: 07/02/21 NPO Status Time: 18:30 (Solids, >4 Hr Liq) Vital Signs: Last Vital Signs Temp 97.9 F 07/04/21 07:11 Pulse 59 L 07/04/21 07:11 Resp 14 07/04/21 07:11 BP 110/73 07/04/21 07:11 Pulse Ox 98 07/04/21 07:11 Height: 5 ft 4 in Weight: 69.4 kg ASA Class: 2 Mental Status: Alert & Oriented x3 Airway Class: Mallampati = 3 Dentition: Reports: Normal Dentition Thyro-Mental Finger Breadths: 3 Mouth Opening Finger Breadths: 3 ROM/Head Extension: Full Lungs: Clear to Auscultation, Normal Respiratory Effort Cardiovascular: Regular Rate, Regular Rhythm - Allergies Allergies/Adverse Reactions: Allergies Allergy/AdvReac Type Severity Reaction Status Date / Time cefaclor [From Ceclor] Allergy Nausea and Verified 06/28/21 12:23 Vomiting Sulfa (Sulfonamide Allergy Hives Verified 06/28/21 12:23 Antibiotics) sulfamethoxazole Allergy Stomach Verified 06/28/21 12:23 [From Bactrim] Upset trimethoprim [From Bactrim] Allergy Stomach Verified 06/28/21 12:23 Upset latex sensitive Allergy Rash Uncoded 06/28/21 12:23 - Acknowledgements Anesthesia Type Planned: General Anesthesia Pt an Appropriate Candidate for the Planned Anesthesia: Yes Alternatives and Risks of Anesthesia Discussed w Pt/Guardian: Yes Pt/Guardian Understands and Agrees with Anesthesia Plan: Yes PreAnesthesia Questionnaire HEENT History: Reports: Allergic Rhinitis, Other (See Below) Other HEENT History: wears glasses Cardiovascular History: Reports: Heart Murmur Other Cardiovascular History: states has hx of heart murmur Respiratory History: Reports: None Gastrointestinal History: Reports: Cholelithiasis, GERD Other Gastrointestinal History: hx of Idiopathic Sclerosing Meseneritis, takes occasional prednisone, hx of GERD- no problems now Genitourinary History: Reports: None SUGAR GRINDER History: Reports: Musculoskeletal History: Reports: None Neurological History: Other Neuro History: hx of motion sickness Psychiatric History: Reports: Other (See Below) Other Psychiatric History: hx of claustrophobia Endocrine/Metabolic History: Reports: Hypothyroidism Hematologic History: Reports: None Immunologic History: Reports: None Oncologic (Cancer) History: Reports: None Dermatologic History: Reports: None - Infectious Disease History Infectious Disease History: Reports: Chicken Pox - Past Surgical History Head Surgeries/Procedures: Reports: None HEENT Surgical History: Reports: None Other HEENT Surgeries/Procedures: cysts removed from eyelids Cardiovascular Surgical History: Reports: None Respiratory Surgical History: Reports: None GI Surgical History: Reports: Cholecystectomy, Colonoscopy Female Surgical History: Reports: Hysterectomy, Salpingo-Oophorectomy, Tubal Ligation Endocrine Surgical History: Reports: None Neurological Surgical History: Reports: C-Spine, Other (See Below) Other Neurological Surgeries/Procedures: hx neck surgery with plate Musculoskeletal Surgical History: Reports: Arthroscopic Knee Other Musculoskeletal Surgeries/Procedures:: hx of bilateral knee arthroscopies Oncologic Surgical History: Reports: None Dermatological Surgical History: Reports: None - SUBSTANCE USE Tobacco Use Status *Q: Former Tobacco User Tobacco Use Within Last Twelve Months: Pipe Recreational Drug Use History: No - HOME MEDS Home Medications: Home Meds Cholecalciferol (Vitamin D3) [Vitamin D3] 1,000 unit PO DAILY 07/02/15 [History] Levothyroxine [Synthroid] 100 mcg PO DAILY 07/02/15 [History] L.acidoph,Paracasei, B.lactis [Probiotic] 1 each PO DAILY 12/16/15 [History] Ascorbic Acid [Vitamin C] 500 mg PO DAILY 06/28/21 [History] Calcium Carbonate/Vitamin D3 [Calcium 500+D Tablet Chew] 1 tab CHEW DAILY 06/28/21 [History] Fish Oil/Cochran-3 Fatty Acids [Fish Oil 1,000 MG] 1,000 mg PO DAILY 06/28/21 [History] Ibuprofen 200 mg PO Q4H PRN 06/28/21 [History] Magnesium 250 mg PO DAILY 06/28/21 [History] Ondansetron [Zofran ODT] 4 mg PO ASDIRECTED PRN 06/28/21 [History] Vitamin E 400 unit PO DAILY 06/28/21 [History] - CURRENT (IN HOUSE) MEDS Current Meds: Current Medications Lactated Ringer's (Ringers, Lactated) 1,000 mls @ 125 mls/hr IV ASDIRECTED EDD Last Admin: 07/04/21 07:13 Dose: 125 mls/hr Documented by: Sodium Chloride (Sodium Chloride 0.9% 10 Ml Syringe) 10 ml FLUSH ASDIRECTED PRN PRN Reason: Keep Vein Open Sodium Chloride (Sodium Chloride 0.9% 2.5 Ml Syringe) 2.5 ml FLUSH ASDIRECTED PRN PRN Reason: Keep Vein Open Sodium Chloride (Sodium Chloride 0.9% 10 Ml Syringe) 10 ml FLUSH ASDIRECTED PRN PRN Reason: Keep Vein Open Sodium Chloride (Sodium Chloride 0.9% 2.5 Ml Syringe) 2.5 ml FLUSH ASDIRECTED PRN PRN Reason: Keep Vein Open Sodium Chloride (Sodium Chloride 0.9% 10 Ml Sdv) 10 ml IV ASDIRECTED PRN PRN Reason: IV Use
[2021-07-04] MEDS ORDERED: Propofol 200 MG/20 ML SDV ONE (08:14)
--- NOTE | 2021-07-04 08:58 | PCM.POSTAN ---
POST ANESTHESIA ASSESSMENT - MENTAL STATUS Mental Status: Somnolent - VITAL SIGNS Vital Signs: Last Vital Signs Temp 97.0 F 07/04/21 08:53 Pulse 51 L 07/04/21 08:53 Resp 16 07/04/21 08:53 BP 97/53 L 07/04/21 08:53 Pulse Ox 100 07/04/21 08:53 - RESPIRATORY Respiratory Status: Respiratory Rate WNL, Airway Patent, O2 Saturation Stable, Supplemental Oxygen - CARDIOVASCULAR CV Status: Pulse Rate WNL, Blood Pressure Stable - GASTROINTESTINAL GI Status: No Symptoms - PAIN Free Text/Narrative:: Resting comfortably - POST OP HYDRATION Hydration Status: Adequate & Stable
[2021-07-04 09:25] VITALS: BP 108/62; PULSE 49
--- NOTE | 2021-07-04 09:40 | PCM48HPAN ---
Post Anesthesia Note - EVALUATION WITHIN 48HRS OF ANESTHETIC Vital Signs in Normal Range: Yes Patient Participated in Evaluation: Yes Respiratory Function Stable: Yes Airway Patent: Yes Cardiovascular Function Stable: Yes Hydration Status Stable: Yes Pain Control Satisfactory: Yes Nausea and Vomiting Control Satisfactory: Yes Mental Status Recovered: Yes Vital Signs: Last Vital Signs Temp 97.3 F 07/04/21 09:15 Pulse 49 L 07/04/21 09:15 Resp 14 07/04/21 09:15 BP 108/62 07/04/21 09:15 Pulse Ox 96 07/04/21 09:15 - COMMENTS/OBSERVATIONS Free Text/Narrative:: Pt doing well post-op. VSS. No apparent anesthetic complications. Dr. Michael Jules
--- NOTE | 2021-07-04 09:44 | PCM.OPNOTE ---
- General Post-Op/Procedure Note Date of Surgery/Procedure: 07/04/21 Operative Procedure(s): Screening colonoscopy Findings: Normal colonoscopy Pre Op Diagnosis: Screening colonoscopy Post-Op Diagnosis: same Anesthesia Technique: MAC Primary Surgeon: Brittanie Brown Condition: Good Free Text/Narrative:: Intake & Output 07/03/21 07/04/21 07/04/21 22:59 06:59 14:59 Intake Total 900 Balance 900
--- NOTE | 2021-07-05 23:35 | OR ---
SURGEON: BRITTANIE BROWN MD DATE OF PROCEDURE: 07/04/2021 PREOPERATIVE DIAGNOSIS: Screening colonoscopy. POSTOPERATIVE DIAGNOSIS: Screening colonoscopy. PROCEDURE PERFORMED: Screening colonoscopy. PRIMARY SURGEON: Brittanie Brown MD ANESTHESIA: MAC. INSTRUMENT USED: Olympus colonoscope. EXTENT OF EXAM: To the cecum. PREPARATION: Good. LIMITATIONS: None. INDICATIONS FOR EXAMINATION: Patient is a 50 yr old female who presents for screening colonoscopy. I explained the procedure, expected perioperative course, and the risks. She verbalized understanding and wishes to proceed. PROCEDURE IN DETAIL: Patient was brought in to the endoscopy suite and placed in a left lateral decubitus position. A time-out was completed verifying the patient's name, age, date of , allergies, and procedure to be performed. Monitored anesthesia care was induced and continuous oxygen was provided via nasal cannula throughout the procedure. After adequate sedation was achieved, a digital rectal exam was performed. This exam was within normal limits. A well-lubricated colonoscope was inserted in the rectum and advanced under direct visualization to the level of the cecum. The cecum was identified by both visual and anatomic landmarks. A photograph was taken of the cecal cap, however, I was unable to retroflex the scope within the cecum due to looping of the scope more proximally. The scope was then fully withdrawn while examining the color, texture, anatomy, and integrity of the mucosa from the cecum to the anal canal. The patient was found to have normal-appearing colonic mucosa. The scope was then brought into the rectum and retroflexed to allow visualization of the anal canal opening. This appeared normal and a photograph was taken. The scope was then straightened out and fully withdrawn. The cecum to anus time was 10 minutes. The patient tolerated the procedure well and was transferred to the PACU in stable condition. ENDOSCOPIC DIAGNOSIS: Normal colonoscopy. RECOMMENDATION: Follow up in clinic in 10 years. JULIO / MARIBEL /[id number] DERRICK
== END 2021-07-04 09:37 | disposition home or self-care (01) ==
LOC: MW.SDS 06:58
PROVIDERS: ATTEND Surgery
DX: Z12.11 Encounter for screening for malignant neoplasm of colon (principal); E78.5 Hyperlipidemia, unspecified; E03.9 Hypothyroidism, unspecified; E66.3 Overweight; Z88.8 Allergy status to other drugs, medicaments and biological substances; Z88.2 Allergy status to sulfonamides; Z91.040 Latex allergy status; Z79.899 Other long term (current) drug therapy; Z79.890 Hormone replacement therapy; Z90.49 Acquired absence of other specified parts of digestive tract; Z98.890 Other specified postprocedural states; Z87.891 Personal history of nicotine dependence
CPT/HCPCS: 45378; J2704; J7120